=== PATIENT | female | born 1940 | race Caucasian/White ===

== ENCOUNTER 2021-04-18 19:02 | Inpatient (IN) ==
[2021-04-18 20:29] LABS: ABS Eosinophils 0.1 10^3/ul (0-0.6); ABS Lymphocytes 1.2 10^3/ul (1.0-4.8); ABS Monocytes 0.6 10^3/ul (0-0.8); ABS Neutrophils 3.1 10^3/ul (1.5-7.7); Eosinophil % 1.3 %; Hematocrit 35 % (35-47); Hemoglobin 12.4 g/dL (12.0-16.0); Lymphocyte % 23.6 %; Mean Corpuscular HGB Conc 35 g/dL (31-36); Mean Corpuscular Hemoglobin 33 pg (27-31); Mean Corpuscular Volume 94 fL (80-97); Nucleated Red Blood Cells % 0.1; Platelet Count 366 10^3/uL (150-450); Red Blood Count 3.79 10^6 /uL (3.70-4.87); Red Cell Distribution Width 13 % (10-15)
[2021-04-18 20:47] LABS: ALT 17 U/L (7-52); AST 25 U/L (13-39); Albumin 4.3 g/dL (3.2-5.2); Albumin/Globulin Ratio 1.3 (1-3); Alkaline Phosphatase 92 U/L (35-149); Anion Gap 11 mmol/L (2-11); Blood Urea Nitrogen 125 mg/dL (6-24); CO2 Carbon Dioxide 33 mmol/L (22-32); Calcium 9.8 mg/dL (8.6-10.3); Chloride 85 mmol/L (101-111); Globulin 3.4 g/dL (2-4); Glucose 214 mg/dL (70-100); Magnesium 2.9 mg/dL (1.9-2.7); Potassium 3.2 mmol/L (3.5-5.0); Sodium 129 mmol/L (135-145); Total Protein 7.7 g/dL (6.4-8.9)
[2021-04-18 20:52] LABS: Troponin I 0.03 ng/mL (<0.03)
[2021-04-18 21:22] LABS: TSH Ultra Thyroid Stim Horm 4.82 mcIU/mL (0.34-5.60)
[2021-04-18] MEDS ORDERED: Lactated Ringers 500 ml BAG 500 ML IV ONE (21:41)
[2021-04-18] MEDS: KCL 20 MEQ/100 ML IVPREMIX 20 MEQ/100 ML BAG IV SCH (22:05)
[2021-04-18 22:21] LABS: Urine Appearance Clear; Urine Bilirubin Negative (Negative); Urine Blood Negative (Negative); Urine Color Straw; Urine Glucose Negative (Negative); Urine Ketones Negative (Negative); Urine Nitrite Negative (Negative); Urine Protein Negative (Negative); Urine Specific Gravity 1.008 (1.002-1.030); Urine Urobilinogen Negative (Negative)
[2021-04-18 22:28] LABS: Urine Creatinine Concentration 46.8 mg/dL
[2021-04-19] MEDS: KCL 20 MEQ/100 ML IVPREMIX 20 MEQ/100 ML BAG IV SCH ×3 (00:38→13:32)
[2021-04-19] MEDS ORDERED: Dextrose 50% Syringe 50 ml 25 GM/50 ML SYRINGE IV PUSH PRN (00:42)
[2021-04-19 05:10] LABS: Anion Gap 11 mmol/L (2-11); Blood Urea Nitrogen 116 mg/dL (6-24); CO2 Carbon Dioxide 30 mmol/L (22-32); Calcium 9.4 mg/dL (8.6-10.3); Chloride 91 mmol/L (101-111); Glucose 213 mg/dL (70-100); Potassium 3.1 mmol/L (3.5-5.0); Sodium 132 mmol/L (135-145); eGFR CKD-EPI 15.2 (>60)
[2021-04-19] MEDS ORDERED: Potassium Chloride LIQUID 20 MEQ/15 ML LIQUID PO ONE (05:22)
[2021-04-19 05:29] LABS: Troponin I 0.03 ng/mL (<0.03)
[2021-04-19] MEDS: Lactated Ringers 1000 ml BAG 1,000 ML IV SCH (06:15)
[2021-04-19] MEDS: CMCS: Pravastatin 20 mg TAB (NF) PO SCH (08:33)
[2021-04-19] MEDS ORDERED: Insulin GLARGINE 100 un/ml 10 ml VIAL SUBCUT SCH (09:00)
[2021-04-20] MEDS: Lactated Ringers 1000 ml BAG 1,000 ML IV SCH (00:19)
[2021-04-20] MEDS: CMCS: Pravastatin 20 mg TAB (NF) PO SCH (08:51)
[2021-04-20] MEDS ORDERED: Insulin GLARGINE 100 un/ml 10 ml VIAL SUBCUT SCH (09:00)
[2021-04-20 09:50] LABS: Calcium 9.5 mg/dL (8.6-10.3); Potassium 3.4 mmol/L (3.5-5.0); eGFR CKD-EPI 24.6 (>60)
[2021-04-20] MEDS ORDERED: Potassium Chlor 20 meq TAB.ER PO SCH (11:00)
[2021-04-20 11:20] VITALS: BP 127/68
== END 2021-04-20 14:50 | disposition home or self-care (01) | DRG 684 ==
LOC: EDHOLD 19:02 → ED 19:02 → OBSVTOIN 23:26 → SSU 04-19 03:57
PROVIDERS: ADMIT Internal Medicine; ATTEND Internal Medicine